=== PATIENT | female | born 2000 | race Native Hawaiian/Other Pacific Islander ===

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

== ENCOUNTER 2019-05-24 22:50 | Emergency (ER) | payer SELFPAY ==
[2019-05-24 23:18] VITALS: BP 130/70
--- NOTE | 2019-05-25 00:54 | XRay Report ---
CHEST 1 VIEW 12:23 AM INDICATION / CLINICAL INFORMATION: Cough and fever for 2 days. COMPARISON: 03/21/2011. FINDINGS: SUPPORT DEVICES: None. HEART / MEDIASTINUM: The heart size and pulmonary vasculature are normal. LUNGS / PLEURA: No significant pulmonary or pleural abnormality. No pneumothorax. ADDITIONAL FINDINGS: No significant additional findings. IMPRESSION: No acute findings. There is no evidence of pneumonia. Signer Name: Alfonso Barkely MD Signed: 05/25/2019 12:49 AM Workstation Name: [id number]
[2019-05-25] MEDS ORDERED: CLINDAMYCIN 300 MG CAP PO ONE (01:16)
[2019-05-25] MEDS ORDERED: IBUPROFEN 800 MG TAB PO ONE (01:16)
--- NOTE | 2019-05-25 01:17 | Emergency Department Report ---
ED General Adult HPI - General Chief complaint: Dental/Oral Stated complaint: TOOTHACHE/EMESIS Time Seen by Provider: 05/25/19 01:03 Source: patient Mode of arrival: Ambulatory Limitations: No Limitations - History of Present Illness Initial comments: Patient is a 18-year-old female is here secondary to tooth pain the past 2 days. Patient states noticed some swelling to the angle of the left jaw as well. Patient is a difficult time opening her mouth secondary to pain. Patient states for the past 2 days also exhibited fevers as well as a nonproductive cough. Patient denies nausea vomiting diarrhea neck stiffness or headaches. Severity scale (0 -10): 6 Consistency: constant Associated Symptoms: cough, fever/chills. denies: confusion, chest pain, diaphoresis, nausea/vomiting - Related Data Previous Rx's Medication Instructions Recorded Last Taken Type Ibuprofen [Motrin 600 MG tab] 600 mg PO Q8H #30 tablet 02/10/18 Unknown Rx Albuterol INH(or & Nicu Only) 2 puff IH QID PRN #1 inhalation 04/14/18 Unknown Rx [ProAir HFA Inhaler] Amoxicillin [Amoxicillin TAB] 875 mg PO BID #14 tablet 04/14/18 Unknown Rx guaiFENesin [Robitussin] 5 ml PO TID PRN #100 ml 04/14/18 Unknown Rx Ciprofloxacin HCl [Ciprofloxacin 500 mg PO BID 7 Days #14 tablet 09/21/18 Unknown Rx TAB] Loperamide [Imodium] 2 tab PO QID 2 Days #16 capsule 09/21/18 Unknown Rx metroNIDAZOLE [Metronidazole] 500 mg PO BID 7 Days #14 tablet 09/21/18 Unknown Rx Albuterol INH(or & Nicu Only) 2 puff IH QID PRN #1 inhalation 05/25/19 Unknown Rx [ProAir HFA Inhaler] Clindamycin [Clindamycin CAP] 300 mg PO Q8H #21 cap 05/25/19 Unknown Rx predniSONE [Deltasone] 20 mg PO QDAY #5 tab 05/25/19 Unknown Rx traMADoL [Ultram] 50 mg PO Q6HR PRN #12 tablet 05/25/19 Unknown Rx Allergies Allergy/AdvReac Type Severity Reaction Status Date / Time No Known Allergies Allergy Verified 09/20/18 18:26 ED Review of Systems ROS: Stated complaint: TOOTHACHE/EMESIS Other details as noted in HPI Comment: All other systems reviewed and negative ED Past Medical Hx - Past Medical History Previous Medical History?: Yes Hx Asthma: Yes - Surgical History Past Surgical History?: Yes 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 - Social History Smoking Status: Never Smoker Substance Use Type: None - Medications Home Medications: Home Medications Medication Instructions Recorded Confirmed Last Taken Type Ibuprofen [Motrin 600 MG tab] 600 mg PO Q8H #30 tablet 02/10/18 Unknown Rx Albuterol INH(or & Nicu Only) 2 puff IH QID PRN #1 inhalation 04/14/18 Unknown Rx [ProAir HFA Inhaler] Amoxicillin [Amoxicillin TAB] 875 mg PO BID #14 tablet 04/14/18 Unknown Rx guaiFENesin [Robitussin] 5 ml PO TID PRN #100 ml 04/14/18 Unknown Rx Ciprofloxacin HCl [Ciprofloxacin 500 mg PO BID 7 Days #14 tablet 09/21/18 Unknown Rx TAB] Loperamide [Imodium] 2 tab PO QID 2 Days #16 capsule 09/21/18 Unknown Rx metroNIDAZOLE [Metronidazole] 500 mg PO BID 7 Days #14 tablet 09/21/18 Unknown Rx Albuterol INH(or & Nicu Only) 2 puff IH QID PRN #1 inhalation 05/25/19 Unknown Rx [ProAir HFA Inhaler] Clindamycin [Clindamycin CAP] 300 mg PO Q8H #21 cap 05/25/19 Unknown Rx predniSONE [Deltasone] 20 mg PO QDAY #5 tab 05/25/19 Unknown Rx traMADoL [Ultram] 50 mg PO Q6HR PRN #12 tablet 05/25/19 Unknown Rx ED Physical Exam - General Limitations: No Limitations General appearance: alert, in no apparent distress - Head Head exam: Present: atraumatic, normocephalic - Expanded Head Exam Expanded 1 - At the angle of the right jaw the patient does have some swelling with skin induration and minimal erythema consistent with a facial cellulitis. - Eye Eye exam: Present: normal appearance - ENT ENT exam: Present: mucous membranes moist - Expanded ENT Exam Expanded 1 - Dental Tenderness - Neck Neck exam: Present: normal inspection - Respiratory Respiratory exam: Present: normal lung sounds bilaterally. Absent: respiratory distress - Cardiovascular Cardiovascular Exam: Present: normal rhythm, tachycardia, normal heart sounds. Absent: systolic murmur, diastolic murmur, rubs, gallop - GI/Abdominal GI/Abdominal exam: Present: soft, normal bowel sounds. Absent: distended, tenderness, guarding - Extremities Exam Extremities exam: Present: normal inspection - Back Exam Back exam: Present: normal inspection - Neurological Exam Neurological exam: Present: alert, oriented X3 - Psychiatric Psychiatric exam: Present: normal affect, normal mood - Skin Skin exam: Present: warm, dry, intact, normal color. Absent: rash ED Course Vital Signs 05/24/19 05/25/19 23:15 00:02 Temperature 100.5 F H Pulse Rate 144 H 127 H Respiratory 18 Rate Blood Pressure 130/70 O2 Sat by Pulse 96 97 Oximetry ED Medical Decision Making - Medical Decision Making Patient is complaining of a nonproductive cough fever but also has a area swell ing of the face overlying tooth #29. Patient appears to have a facial cellulitis and likely dental abscess. Patient started on clindamycin. Patient will be discharged home follow-up with a dentist. Patient has a additional finding of upper respiratory infection. Chest x-ray was done to rule out pneumonia which was negative for infiltrate. Critical care attestation.: If time is entered above; I have spent that time in minutes in the direct care of this critically ill patient, excluding procedure time. ED Disposition Clinical Impression: Facial cellulitis, Dental abscess Upper respiratory infection Qualifiers: URI type: unspecified viral URI Qualified Code(s): J06.9 - Acute upper respiratory infection, unspecified Disposition: TO HOME OR SELFCARE Is pt being admited?: No Does the pt Need Aspirin: No Condition: Stable Instructions: Cellulitis (ED), Dental Abscess (ED), Upper Respiratory Infection (ED) Additional Instructions: Please see referral to dental clinics Time of Disposition: 01:18
[2019-05-25] MEDS ORDERED: traMADol 50 MG TAB PO ONE (01:46)
== END 2019-05-25 02:13 | disposition home or self-care (01) ==
LOC: ED 22:50
DX: L03.211 Cellulitis of face (principal); K04.7 Periapical abscess without sinus; J06.9 Acute upper respiratory infection, unspecified; J45.909 Unspecified asthma, uncomplicated; Z79.899 Other long term (current) drug therapy
CPT/HCPCS: 71045

== ENCOUNTER 2019-06-24 16:46 | Emergency (ER) | payer SELFPAY ==
--- NOTE | 2019-06-24 19:29 | Emergency Department Report ---
Blank Doc - Documentation Documentation: 18-year-old female that presents with right knee pain s/p fall. This initial assessment/diagnostic orders/clinical plan/treatment(s) is/are subject to change based on patient's health status, clinical progression and re- assessment by fellow clinical providers in the ED. Further treatment and workup at subsequent clinical providers discretion. Patient/guardians urged not to elope from the ED as their condition may be serious if not clinically assessed and managed. Initial orders include: 1- Patient sent to [facility] for further evaluation and treatment 2- xrays
[2019-06-24 19:33] VITALS: BP 119/67
--- NOTE | 2019-06-24 20:05 | XRay Report ---
RIGHT KNEE 3 VIEWS INDICATION / CLINICAL INFORMATION: knee pain COMPARISON: None available. FINDINGS: BONES / JOINT(S): No acute fracture or subluxation. No significant arthritis. SOFT TISSUES: No significant abnormality. ADDITIONAL FINDINGS: None. Signer Name: Khari Go MD Signed: 06/24/2019 8:01 PM Workstation Name: [id number]
[2019-06-24] MEDS ORDERED: ACETAMINOPHEN 500 MG TAB PO ONE (20:06)
[2019-06-24] MEDS ORDERED: IBUPROFEN 600 MG TAB PO ONE (20:06)
--- NOTE | 2019-06-24 20:32 | Emergency Department Report ---
ED Fall HPI - General Chief Complaint: Extremity Injury, Lower Stated Complaint: RIGHT KNEE PAIN Time Seen by Provider: 06/24/19 19:28 Source: patient Mode of arrival: Ambulatory - History of Present Illness Initial Comments: Patient is a 18-year-old female who presented to the ED with complaint of acute onset persistent severe right knee pain and mild swelling after she slipped and fell down on the concrete ground about 1 week ago. Patient states that the pain has worsened especially in the last 2 days with any weightbearing or active range of motion. Patient denies head or neck injuries, back pain, hip pain, dizziness, syncope, seizures, numbness and tingling or weakness of lower extremities bilaterally. Patient states that she has been taking [id number] nter medications with no relief. MD Complaint: fall, other (right knee pain) -: Sudden, week(s) (1) Fall From: standing, other (slipped and fell down on concrete ground) When Fall Occurred: # days [employer] (7) Fall Witnessed: yes, by bystander Place Fall Occurred: street Loss of Consciousness: none Prolonged Down Time?: no Symptoms Prior to Fall: none Location: other (right knee) Location - Extremities: Right: Knee (pain) Severity: severe Severity scale (0 -10): 7 Quality: sharp, aching Context: tripped/slipped Associated Symptoms: denies. denies: headache, neck pain, numbness, weakness, chest paint, shortness of breath, abdominal pain, hematuria, unable to walk, lightheaded, vertigo, confusion, other - Related Data Previous Rx's Medication Instructions Recorded Last Taken Type Albuterol INH(or & Nicu Only) 2 puff IH QID PRN #1 inhalation 04/14/18 Unknown Rx [ProAir HFA Inhaler] Amoxicillin [Amoxicillin TAB] 875 mg PO BID #14 tablet 04/14/18 Unknown Rx guaiFENesin [Robitussin] 5 ml PO TID PRN #100 ml 04/14/18 Unknown Rx Ciprofloxacin HCl [Ciprofloxacin 500 mg PO BID 7 Days #14 tablet 09/21/18 Unknown Rx TAB] Loperamide [Imodium] 2 tab PO QID 2 Days #16 capsule 09/21/18 Unknown Rx metroNIDAZOLE [Metronidazole] 500 mg PO BID 7 Days #14 tablet 09/21/18 Unknown Rx Albuterol INH(or & Nicu Only) 2 puff IH QID PRN #1 inhalation 05/25/19 Unknown Rx [ProAir HFA Inhaler] Clindamycin [Clindamycin CAP] 300 mg PO Q8H #21 cap 05/25/19 Unknown Rx predniSONE [Deltasone] 20 mg PO QDAY #5 tab 05/25/19 Unknown Rx traMADoL [Ultram] 50 mg PO Q6HR PRN #12 tablet 05/25/19 Unknown Rx Cyclobenzaprine [Flexeril] 10 mg PO Q8H PRN #15 tablet 06/24/19 Unknown Rx Ibuprofen [Motrin 600 MG tab] 600 mg PO Q8H #30 tablet 06/24/19 Unknown Rx Allergies Allergy/AdvReac Type Severity Reaction Status Date / Time No Known Allergies Allergy Verified 09/20/18 18:26 ED Review of Systems ROS: Stated complaint: RIGHT KNEE PAIN Other details as noted in HPI Constitutional: denies: chills, fever Eyes: denies: eye pain, eye discharge, vision change ENT: denies: ear pain, throat pain Respiratory: denies: cough, shortness of breath, wheezing Cardiovascular: denies: chest pain, palpitations Endocrine: no symptoms reported Gastrointestinal: denies: abdominal pain, nausea, diarrhea Genitourinary: denies: urgency, dysuria, discharge Musculoskeletal: joint swelling (Right knee swelling and pain), arthralgia (Right knee pain and swelling). 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 - Social History Smoking Status: Current Every Day Smoker Substance Use Type: None - Medications Home Medications: Home Medications Medication Instructions Recorded Confirmed Last Taken Type Albuterol INH(or & Nicu Only) 2 puff IH QID PRN #1 inhalation 04/14/18 Unknown Rx [ProAir HFA Inhaler] Amoxicillin [Amoxicillin TAB] 875 mg PO BID #14 tablet 04/14/18 Unknown Rx guaiFENesin [Robitussin] 5 ml PO TID PRN #100 ml 04/14/18 Unknown Rx Ciprofloxacin HCl [Ciprofloxacin 500 mg PO BID 7 Days #14 tablet 09/21/18 Unknown Rx TAB] Loperamide [Imodium] 2 tab PO QID 2 Days #16 capsule 09/21/18 Unknown Rx metroNIDAZOLE [Metronidazole] 500 mg PO BID 7 Days #14 tablet 09/21/18 Unknown Rx Albuterol INH(or & Nicu Only) 2 puff IH QID PRN #1 inhalation 05/25/19 Unknown Rx [ProAir HFA Inhaler] Clindamycin [Clindamycin CAP] 300 mg PO Q8H #21 cap 05/25/19 Unknown Rx predniSONE [Deltasone] 20 mg PO QDAY #5 tab 05/25/19 Unknown Rx traMADoL [Ultram] 50 mg PO Q6HR PRN #12 tablet 05/25/19 Unknown Rx Cyclobenzaprine [Flexeril] 10 mg PO Q8H PRN #15 tablet 06/24/19 Unknown Rx Ibuprofen [Motrin 600 MG tab] 600 mg PO Q8H #30 tablet 06/24/19 Unknown Rx ED Physical Exam - General Limitations: No Limitations General appearance: alert, in no apparent distress - Head Head exam: Present: atraumatic, normocephalic - Eye Eye exam: Present: normal appearance, PERRL, EOMI - ENT ENT exam: Present: normal exam, normal orophraynx, mucous membranes moist, TM's normal bilaterally, normal external ear exam - Neck Neck exam: Present: normal inspection, full ROM - Respiratory Respiratory exam: Present: normal lung sounds bilaterally. Absent: respiratory distress, wheezes, rales, rhonchi, chest wall tenderness, accessory muscle use, decreased breath sounds, prolonged expiratory - Cardiovascular Cardiovascular Exam: Present: normal rhythm, tachycardia, normal heart sounds. Absent: systolic murmur, diastolic murmur, rubs, gallop - GI/Abdominal GI/Abdominal exam: Present: soft, normal bowel sounds. Absent: tenderness, guarding, hyperactive bowel sounds, hypoactive bowel sounds - Extremities Exam Extremities exam: Present: normal inspection, tenderness (Palpable right knee tenderness with limited range of motion due to pain), normal capillary refill, joint swelling (Mild right knee swelling and tenderness). Absent: full ROM (Limited range of motion of right knee due to pain) - Back Exam Back exam: Present: normal inspection, full ROM. Absent: tenderness, CVA tenderness (R), CVA tenderness (L), muscle spasm, paraspinal tenderness - Neurological Exam Neurological exam: Present: alert, oriented X3, CN II-XII intact, normal gait, reflexes normal - Psychiatric Psychiatric exam: Present: normal affect, normal mood - Skin Skin exam: Present: warm, dry, intact, normal color. Absent: rash ED Course Vital Signs 06/24/19 06/24/19 17:03 21:09 Temperature 98.6 F Pulse Rate 124 H 92 H Respiratory 18 17 Rate Blood Pressure 119/67 O2 Sat by Pulse 98 100 Oximetry ED Medical Decision Making - Radiology Data Radiology results: report reviewed, image reviewed Findings [facility] [address] [place] [address] XRay Report Signed Patient: NAOMI JOSE MR#: [id number] : 2000 Acct:[id number] Age/Sex: 18 / F ADM Date: 06/24/19 Loc: ED Attending Dr: Ordering Physician: YANICK GARCIA NP Date of Service: 06/24/19 Procedure(s): XR knee 3V RT Accession Number(s): [id number] cc: YANICK GARCIA NP Fluoro Time In Minutes: RIGHT KNEE 3 VIEWS INDICATION / CLINICAL INFORMATION: knee pain COMPARISON: None available. FINDINGS: BONES / JOINT(S): No acute fracture or subluxation. No significant arthritis. SOFT TISSUES: No significant abnormality. ADDITIONAL FINDINGS: None. Signer Name: Khari Go MD Signed: 06/24/2019 8:01 PM Workstation Name: [id number] Transcribed By: SS Dictated By: Khari Go MD Electronically Authenticated By: Khari Go MD Signed Date/Time: 06/24/192000 - Medical Decision Making This is a 18-year-old female who presented to the ED with complaint of acute onset persistent severe right knee pain and swelling after she slipped and fell down on the concrete ground about 1 week ago. In the ED, patient is alert and oriented x3 and is not in any distress. Patient was treated for pain in the ED and right knee x-ray shows no acute fractures or subluxations. Right knee was splinted with Dariel wrap and the patient discharged home on pain medications and muscle relaxants. Patient was advised to follow-up with her primary care physician in 5 to 7 days for reevaluation, or return to the ED immediately if symptoms get worse. - Differential Diagnosis knee sprain; Muscle strain; contusion Critical care attestation.: If time is entered above; I have spent that time in minutes in the direct care of this critically ill patient, excluding procedure time. ED Disposition Clinical Impression: Sprain of right knee/leg Qualifiers: Encounter type: initial encounter Qualified Code(s): S83.91XA - Sprain of unspecified site of right knee, initial encounter Contusion of right knee and lower leg Qualifiers: Encounter type: initial encounter Qualified Code(s): S80.01XA - Contusion of right knee, initial encounter Disposition: TO HOME OR SELFCARE Is pt being admited?: No Does the pt Need Aspirin: No Condition: Stable Instructions: Knee Sprain (ED), Leg Sprain (ED) Additional Instructions: Take medications with food, drink plenty fluids and follow-up with your primary care physician in 5 to 7 days for reevaluation. Return to the ED immediately if symptoms get worse. Prescriptions: Cyclobenzaprine [Flexeril] 10 mg PO Q8H PRN #15 tablet PRN Reason: Muscle Spasm Ibuprofen [Motrin 600 MG tab] 600 mg PO Q8H #30 tablet Referrals: [facility] [Outside] - 7-10 days Forms: Work/School Release Form(ED) Time of Disposition: 20:30 Print Language: YORUBA
== END 2019-06-24 21:09 | disposition home or self-care (01) ==
LOC: ED 16:46
DX: S83.91XA Sprain of unspecified site of right knee, initial encounter (principal); J45.909 Unspecified asthma, uncomplicated; F17.200 Nicotine dependence, unspecified, uncomplicated; Z79.899 Other long term (current) drug therapy; X58.XXXA Exposure to other specified factors, initial encounter; Y93.89 Activity, other specified; Y92.89 Other specified places as the place of occurrence of the external cause; Y99.8 Other external cause status
CPT/HCPCS: 99283

== ENCOUNTER 2019-09-05 11:31 | Emergency (ER) | payer SELFPAY ==
[2019-09-05 12:24] LABS: Basophils # (Auto) 0.1 K/mm3 (0.0-0.1); Basophils % (Auto) 0.8 % (0.0-1.8); Eosinophils # (Auto) 0.1 K/mm3 (0.0-0.4); Eosinophils % (Auto) 1.3 % (0.0-4.3); Hematocrit 39.9 % (30.3-42.9); Lymphocytes # (Auto) 1.4 K/mm3 (1.2-5.4); Lymphocytes % (Auto) 21.7 % (13.4-35.0); Mean Corpuscular HGB Conc 33 % (30-34); Mean Corpuscular Volume 83 fl (79-97); Monocytes # (Auto) 0.5 K/mm3 (0.0-0.8); Monocytes % (Auto) 7.7 % (0.0-7.3); Platelet Count 265 K/mm3 (140-440); Red Cell Distribution Width 16.1 % (13.2-15.2)
[2019-09-05 12:57] LABS: Alanine Aminotransferase 16 units/L (7-56); BUN/Creatinine Ratio 15; Blood Urea Nitrogen 9 mg/dL (7-17); Calcium 9.4 mg/dL (8.4-10.2); Hemolysis Index 6
--- NOTE | 2019-09-05 13:02 | Emergency Department Report ---
ED Female HPI - General Chief complaint: Abdominal Pain Stated complaint: ABD PAIN/VOMIT Time Seen by Provider: 09/05/19 12:38 Source: patient Mode of arrival: Ambulatory Limitations: No Limitations - History of Present Illness Initial comments: This is a 18-year-old female who presents to the emergency room with pelvic pain for 1 week. Past medical history of asthma. Patient also reports vomiting as associated symptoms. Last menstrual period was August 02, 2019, 0. Patient reports hematuria yesterday which is resolved today. She also reports intermittent vomiting. She is currently taking ibuprofen and Tylenol with minimal improvement of symptoms. Patient also reports increased vaginal discharge and urinary frequency. Patient states she had STD testing last month which was negative and concerned of possible . She denies dysuria or back pain. MD Complaint: vaginal discharge, pelvic pain, possible STD Onset/Timin -: week(s) Location: suprapubic Radiation: non-radiating Quality: sharp Consistency: intermittent Improves with: none Worsens with: none Are you Now?: No Last Menstrual Period: 08/02/19 EDC: 05/08/20 Associated Symptoms: vaginal discharge, abdominal pain, nausea/vomiting. denies: vaginal bleeding, fever/chills, headaches, loss of appetite, dysuria, hematuria, rash, seizure, shortness of breath, syncope, weakness - Related Data Sexually active: Yes : 0 Previous Rx's Medication Instructions Recorded Last Taken Type Albuterol INH(or & Nicu Only) 2 puff IH QID PRN #1 inhalation 04/14/18 Unknown Rx [ProAir HFA Inhaler] Amoxicillin [Amoxicillin TAB] 875 mg PO BID #14 tablet 04/14/18 Unknown Rx guaiFENesin [Robitussin] 5 ml PO TID PRN #100 ml 04/14/18 Unknown Rx Ciprofloxacin HCl [Ciprofloxacin 500 mg PO BID 7 Days #14 tablet 09/21/18 Unknown Rx TAB] Loperamide [Imodium] 2 tab PO QID 2 Days #16 capsule 09/21/18 Unknown Rx metroNIDAZOLE [Metronidazole] 500 mg PO BID 7 Days #14 tablet 09/21/18 Unknown Rx Clindamycin [Clindamycin CAP] 300 mg PO Q8H #21 cap 05/25/19 Unknown Rx traMADoL [Ultram] 50 mg PO Q6HR PRN #12 tablet 05/25/19 Unknown Rx Cyclobenzaprine [Flexeril] 10 mg PO Q8H PRN #15 tablet 06/24/19 Unknown Rx Ibuprofen [Motrin 600 MG tab] 600 mg PO Q8H #30 tablet 06/24/19 Unknown Rx Albuterol INH(or & Nicu Only) 2 puff IH QID PRN #1 inhalation 08/02/19 Unknown Rx [ProAir HFA Inhaler] Montelukast [Singulair] 10 mg PO QPM #30 tablet 08/02/19 Unknown Rx predniSONE [Deltasone] 20 mg PO QDAY #5 tab 08/02/19 Unknown Rx metroNIDAZOLE [Flagyl TAB] 500 mg PO Q12HR #14 tab 09/05/19 Unknown Rx Allergies Allergy/AdvReac Type Severity Reaction Status Date / Time No Known Allergies Allergy Verified 09/20/18 18:26 ED Review of Systems ROS: Stated complaint: ABD PAIN/VOMIT Other details as noted in HPI Constitutional: denies: chills, fever Respiratory: denies: cough, shortness of breath, wheezing Cardiovascular: denies: chest pain, palpitations Gastrointestinal: abdominal pain. denies: nausea, diarrhea Genitourinary: discharge. 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 - Social History Smoking Status: Current Every Day Smoker Substance Use Type: Marijuana - Medications Home Medications: Home Medications Medication Instructions Recorded Confirmed Last Taken Type Albuterol INH(or & Nicu Only) 2 puff IH QID PRN #1 inhalation 04/14/18 Unknown Rx [ProAir HFA Inhaler] Amoxicillin [Amoxicillin TAB] 875 mg PO BID #14 tablet 04/14/18 Unknown Rx guaiFENesin [Robitussin] 5 ml PO TID PRN #100 ml 04/14/18 Unknown Rx Ciprofloxacin HCl [Ciprofloxacin 500 mg PO BID 7 Days #14 tablet 09/21/18 Unknown Rx TAB] Loperamide [Imodium] 2 tab PO QID 2 Days #16 capsule 05/10/19 Unknown Rx metroNIDAZOLE [Metronidazole] 500 mg PO BID 7 Days #14 tablet 09/21/18 Unknown Rx Clindamycin [Clindamycin CAP] 300 mg PO Q8H #21 cap 05/25/19 Unknown Rx traMADoL [Ultram] 50 mg PO Q6HR PRN #12 tablet 05/25/19 Unknown Rx Cyclobenzaprine [Flexeril] 10 mg PO Q8H PRN #15 tablet 06/24/19 Unknown Rx Ibuprofen [Motrin 600 MG tab] 600 mg PO Q8H #30 tablet 06/24/19 Unknown Rx Albuterol INH(or & Nicu Only) 2 puff IH QID PRN #1 inhalation 08/02/19 Unknown Rx [ProAir HFA Inhaler] Montelukast [Singulair] 10 mg PO QPM #30 tablet 08/02/19 Unknown Rx predniSONE [Deltasone] 20 mg PO QDAY #5 tab 08/02/19 Unknown Rx metroNIDAZOLE [Flagyl TAB] 500 mg PO Q12HR #14 tab 09/05/19 Unknown Rx ED Physical Exam - General Limitations: No Limitations General appearance: alert, in no apparent distress - Respiratory Respiratory exam: Present: normal lung sounds bilaterally. Absent: respiratory distress - Cardiovascular Cardiovascular Exam: Present: regular rate, normal rhythm. Absent: systolic murmur, diastolic murmur, rubs, gallop - GI/Abdominal GI/Abdominal exam: Present: soft, tenderness (Suprapubic pain), normal bowel sounds. Absent: distended, guarding, rebound, rigid, organomegaly - External exam: Present: normal external exam. Absent: erythema, swelling, lesions, lacerations, ecchymosis, bleeding Speculum exam: Present: vaginal discharge (Malodorous greenish-white). Absent: erythema, cervical discharge, vaginal bleeding, foreign body, tissue, laceration Bi-manual exam: Present: adnexal tenderness (Left). Absent: cervical motion tendernes, adnexal mass, uterine enlargement, uterine tenderness - Extremities Exam Extremities exam: Present: normal inspection - Back Exam Back exam: Absent: CVA tenderness (R), CVA tenderness (L) - Neurological Exam Neurological exam: Present: alert, oriented X3, normal gait - Psychiatric Psychiatric exam: Present: normal affect, normal mood - Skin Skin exam: Present: warm, dry, intact, normal color. Absent: rash ED Course Vital Signs 09/05/19 09/05/19 11:40 15:21 Temperature 98.3 F Pulse Rate 120 H 78 Respiratory 16 Rate Blood Pressure 137/80 O2 Sat by Pulse 99 Oximetry ED Medical Decision Making - Lab Data Result diagrams: 09/05/19 11:58 09/05/19 11:58 Lab Results 09/05/19 09/05/19 09/05/19 Range/Units 11:58 11:58 11:58 WBC 6.4 (4.5-11.0) K/mm3 RBC 4.80 (3.65-5.03) M/mm3 Hgb 13.0 (10.1-14.3) gm/dl Hct 39.9 (30.3-42.9) % MCV 83 (79-97) fl MCH 27 L (28-32) pg MCHC 33 (30-34) % RDW 16.1 H (13.2-15.2) % Plt Count 265 (140-440) K/mm3 Lymph % (Auto) 21.7 (13.4-35.0) % Brewster % (Auto) 7.7 H (0.0-7.3) % Eos % (Auto) 1.3 (0.0-4.3) % Baso % (Auto) 0.8 (0.0-1.8) % Lymph # 1.4 (1.2-5.4) K/mm3 Brewster # 0.5 (0.0-0.8) K/mm3 Eos # 0.1 (0.0-0.4) K/mm3 Baso # 0.1 (0.0-0.1) K/mm3 Seg Neutrophils % 68.5 (40.0-70.0) % Seg Neutrophils # 4.4 (1.8-7.7) K/mm3 Sodium 139 (137-145) mmol/L Potassium 4.5 (3.6-5.0) mmol/L Chloride 102.6 (98-107) mmol/L Carbon Dioxide 21 L (22-30) mmol/L Anion Gap 20 mmol/L BUN 9 (7-17) mg/dL Creatinine 0.6 L (0.7-1.2) mg/dL Estimated GFR > 60 ml/min BUN/Creatinine Ratio 15 % Glucose 93 (65-100) mg/dL Calcium 9.4 (8.4-10.2) mg/dL Total Bilirubin 0.60 (0.1-1.2) mg/dL AST 18 (5-40) units/L ALT 16 (7-56) units/L Alkaline Phosphatase 56 (35-129) units/L Total Protein 6.8 (6.3-8.2) g/dL Albumin 4.0 (3.9-5) g/dL Albumin/Globulin Ratio 1.4 % Lipase 19 (13-60) units/L HCG, Qual (Negative) 09/05/19 Range/Units 11:58 WBC (4.5-11.0) K/mm3 RBC (3.65-5.03) M/mm3 Hgb (10.1-14.3) gm/dl Hct (30.3-42.9) % MCV (79-97) fl MCH (28-32) pg MCHC (30-34) % RDW (13.2-15.2) % Plt Count (140-440) K/mm3 Lymph % (Auto) (13.4-35.0) % Brewster % (Auto) (0.0-7.3) % Eos % (Auto) (0.0-4.3) % Baso % (Auto) (0.0-1.8) % Lymph # (1.2-5.4) K/mm3 Brewster # (0.0-0.8) K/mm3 Eos # (0.0-0.4) K/mm3 Baso # (0.0-0.1) K/mm3 Seg Neutrophils % (40.0-70.0) % Seg Neutrophils # (1.8-7.7) K/mm3 Sodium (137-145) mmol/L Potassium (3.6-5.0) mmol/L Chloride (98-107) mmol/L Carbon Dioxide (22-30) mmol/L Anion Gap mmol/L BUN (7-17) mg/dL Creatinine (0.7-1.2) mg/dL Estimated GFR ml/min BUN/Creatinine Ratio % Glucose (65-100) mg/dL Calcium (8.4-10.2) mg/dL Total Bilirubin (0.1-1.2) mg/dL AST (5-40) units/L ALT (7-56) units/L Alkaline Phosphatase (35-129) units/L Total Protein (6.3-8.2) g/dL Albumin (3.9-5) g/dL Albumin/Globulin Ratio % Lipase (13-60) units/L HCG, Qual Negative (Negative) - Medical Decision Making This is a 18-year-old female who presents to the emergency room with pelvic pain, vaginal discharge, and vomiting for 1 week. Slightly tachycardic on arrival. Past medical history of asthma. Work-up: Urinalysis, serum hCG, CBC, CMP, pelvic exam, gonorrhea chlamydia, and wet prep. Left adnexal tenderness on pelvic exam. Wet prep positive for clue cells, yeast, and trichomonas. Negativ e test. Patient will be treated for acute cervicitis. Empirically treated with azithromycin 1 g p.o. and Rocephin 250 mg IM to cover gonorrhea chlamydia. Start metronidazole 500 mg p.o. twice daily x7 days. Patient discharged home stable with strict return instructions. Referral to [facility] for continued care. Critical care attestation.: If time is entered above; I have spent that time in minutes in the direct care of this critically ill patient, excluding procedure time. ED Disposition Clinical Impression: Cervicitis, Vaginal discharge, Pelvic pain, Vomiting alone, Exposure to STD Disposition: DC-01 TO HOME OR SELFCARE Is pt being admited?: No Condition: Stable Instructions: Cervicitis (ED), Abdominal Pain (ED) Additional Instructions: Complete antibiotics as prescribed. Please inform all partners of positive trichomonas infection and importance of them being tested and treated. I have provided a list of [facility] for you to follow-up with for continued care. Prescriptions: metroNIDAZOLE [Flagyl TAB] 500 mg PO Q12HR #14 tab Referrals: [facility] [Provider Group] - 3-5 Days [facility] [Provider Group] - 3-5 Days [facility] [Provider Group] - 3-5 Days Forms: STI Treatment and Prevention Time of Disposition: 14:56
[2019-09-05 13:05] VITALS: BP 137/80
[2019-09-05] MEDS ORDERED: AZITHROMYCIN 250 MG TAB PO ONE (15:29)
[2019-09-05] MEDS ORDERED: LIDOCAINE-MPF (1%) 10 MG/1 ML VIAL 5 ML INFILTRATI ONE (15:29)
[2019-09-05 15:54] LABS: Bacteria,Urine 1+ /HPF (Negative); Bilirubin,Urine NEG (Negative); Blood,Urine SM (Negative); Color,Urine Straw (Yellow); Hyaline Casts,Urine 2 /LPF; Mucus,Urine FEW /HPF; Protein,Urine <15 mg/dL mg/dL (Negative); Urobilinogen,Urine < 2.0 mg/dL (<2.0)
== END 2019-09-05 15:49 | disposition home or self-care (01) ==
LOC: ED 11:31
DX: N72 Inflammatory disease of cervix uteri (principal); R10.2 Pelvic and perineal pain; N89.8 Other specified noninflammatory disorders of vagina; R11.10 Vomiting, unspecified; Z20.2 Contact with and (suspected) exposure to infections with a predominantly sexual mode of transmission; J45.909 Unspecified asthma, uncomplicated; F17.200 Nicotine dependence, unspecified, uncomplicated; F12.10 Cannabis abuse, uncomplicated; Z79.2 Long term (current) use of antibiotics; Z79.899 Other long term (current) drug therapy
CPT/HCPCS: 36415; 80053; 81001; 83690; 84703; 85025; 87086; 87210; 87591; 96372; 99284; J0696

== ENCOUNTER 2020-02-13 17:19 | Emergency (ER) | payer SELFPAY ==
[2020-02-13 17:42] VITALS: BP 114/69
[2020-02-13 18:31] LABS: Bilirubin,Urine NEG (Negative); Blood,Urine SM (Negative); Color,Urine Yellow (Yellow); Mucus,Urine FEW /HPF; Protein,Urine <15 mg/dL mg/dL (Negative); Urobilinogen,Urine < 2.0 mg/dL (<2.0)
[2020-02-13 18:34] LABS: HCG Qualitative,Urine Negative (Negative)
[2020-02-13] MEDS ORDERED: ACETAMINOPHEN 500 MG TAB PO ONE (20:05)
[2020-02-13] MEDS ORDERED: ONDANSETRON 4 MG ODT TAB PO ONE (20:05)
[2020-02-13 20:38] LABS: Basophils # (Auto) 0.2 K/mm3 (0.0-0.1); Basophils % (Auto) 2.2 % (0.0-1.8); Eosinophils # (Auto) 0.1 K/mm3 (0.0-0.4); Eosinophils % (Auto) 0.9 % (0.0-4.3); Hematocrit 36.4 % (30.3-42.9); Hemoglobin 12.2 gm/dl (10.1-14.3); Lymphocytes # (Auto) 1.7 K/mm3 (1.2-5.4); Lymphocytes % (Auto) 22.6 % (13.4-35.0); Mean Corpuscular HGB Conc 33 % (30-34); Mean Corpuscular Volume 82 fl (79-97); Monocytes # (Auto) 0.7 K/mm3 (0.0-0.8); Monocytes % (Auto) 9.4 % (0.0-7.3); Platelet Count 221 K/mm3 (140-440); Red Blood Count 4.46 M/mm3 (3.65-5.03); Red Cell Distribution Width 16.3 % (13.2-15.2)
[2020-02-13 20:55] LABS: Alanine Aminotransferase 18 units/L (7-56); Albumin 4.2 g/dL (3.9-5); Blood Urea Nitrogen 12 mg/dL (7-17); Calcium 9.8 mg/dL (8.4-10.2); Hemolysis Index 5
[2020-02-13 20:58] LABS: BUN/Creatinine Ratio 20
--- NOTE | 2020-02-13 21:24 | Ultrasound Report ---
ULTRASOUND PELVIS INDICATION / CLINICAL INFORMATION: Pelvic pain. TECHNIQUE: Transabdominal. Duplex Color Doppler used: Yes. COMPARISON: None available FINDINGS: UTERUS: The uterus is within normal limits for size measuring 8.3 x 4 x 5.0 cm. The uterus is antever leilani and demonstrates homogenous echotexture without evidence of focal lesion. Endometrial thickness m easures 16 mm. RIGHT ADNEXA: The right ovary is not visualized. Secondary to overlying bowel gas. LEFT ADNEXA: The left ovary is not visualized. Secondary to overlying bowel gas. URINARY BLADDER: No significant abnormality. FREE FLUID: None. ADDITIONAL FINDINGS: None. IMPRESSION: 1. Minimally limited exam with nonvisualization of the bilateral ovaries secondary to overlying bowel gas. 2. Endometrial thickness of 16 mm in this premenopausal female is likely physiologic. Signer Name: Margarito Huntley MD Signed: 02/13/2020 9:20 PM Workstation Name: [id number]
--- NOTE | 2020-02-14 00:07 | Emergency Department Report ---
ED Female HPI - General Chief complaint: Abdominal Pain Stated complaint: ABDOMINAL/VAGINAL PAIN Source: patient Mode of arrival: Ambulatory Limitations: No Limitations - History of Present Illness Initial comments: Patient is a nulliparous 19-year-old -Monegasque female with a history of asthma and bipolar disorder who presents to the ED with complaint of acute onset of persistent vaginal discharge, dysuria, urinary frequency and urgency and vaginal itching for the last 1 week. Patient denies abdominal pain, nausea, vomiting, chest pain, shortness of breath, cough, dyspareunia, headache, fever, chills, sore throat or diarrhea. MD Complaint: vaginal discharge, dysuria, other (vaginal itching and irritation) -: Sudden, week(s) (1) Location: other (vaginal) Radiation: non-radiating Severity: moderate Severity scale (0 -10): 5 Quality: burning, aching, other (itching) Consistency: constant Improves with: none Worsens with: urination Are you Now?: No Last Menstrual Period: 01/09/20 EDC: 10/15/20 Associated Symptoms: denies other symptoms, vaginal discharge, dysuria, other (Vaginal discharge). denies: vaginal bleeding, abdominal pain, nausea/vomiting, fever/chills, headaches, loss of appetite, hematuria, rash, seizure, shortness of breath, syncope, weakness - Related Data Sexually active: Yes : 0 Para: 0 A: 0 Previous Rx's Medication Instructions Recorded Last Taken Type Cyclobenzaprine [Flexeril 10 MG 10 mg PO Q8H PRN #15 tablet 06/24/19 Unknown Rx TAB] Ibuprofen [Motrin 600 MG tab] 600 mg PO Q8H #30 tablet 06/24/19 Unknown Rx Albuterol Mdi (or & Nicu Only) 2 puff IH QID PRN #1 inhalation 08/02/19 Unknown Rx [ProAir HFA Inhaler] Albuterol Mdi (or & Nicu Only) 2 puff IH QID PRN #1 inhalation 09/15/19 Unknown Rx [ProAir HFA Inhaler] Divalproex [Arianna Garcia] 125 mg PO BID #60 tablet 09/15/19 Unknown Rx FLUoxetine [PROzac] 10 mg PO QDAY #30 tablet 09/15/19 Unknown Rx QUEtiapine [SEROquel] 25 mg PO BID 1 Days #60 tablet 09/15/19 Unknown Rx Fluconazole (Nf) [Diflucan TAB] 150 mg PO ONCE #2 tablet 02/14/20 Unknown Rx Nystatin Oint [Mycostatin Oint] 1 applicatio TP BID #1 tube 02/14/20 Unknown Rx metroNIDAZOLE [Flagyl] 500 mg PO Q12HR #14 tab 02/14/20 Unknown Rx Allergies Allergy/AdvReac Type Severity Reaction Status Date / Time No Known Allergies Allergy Verified 09/20/18 18:26 ED Review of Systems ROS: Stated complaint: ABDOMINAL/VAGINAL PAIN Other details as noted in HPI Constitutional: denies: chills, fever Eyes: denies: eye pain, eye discharge, vision change ENT: denies: ear pain, throat pain Respiratory: denies: cough, shortness of breath, wheezing Cardiovascular: denies: chest pain, palpitations Endocrine: no symptoms reported Gastrointestinal: denies: abdominal pain, nausea, diarrhea Genitourinary: dysuria, frequency, discharge, other (Vaginal itching and discharge). 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 - Social History Smoking Status: Never Smoker Substance Use Type: None - Medications Home Medications: Home Medications Medication Instructions Recorded Confirmed Last Taken Type Cyclobenzaprine [Flexeril 10 MG 10 mg PO Q8H PRN #15 tablet 06/24/19 09/14/19 Unknown Rx TAB] Ibuprofen [Motrin 600 MG tab] 600 mg PO Q8H #30 tablet 06/24/19 09/14/19 Unknown Rx Albuterol Mdi (or & Nicu Only) 2 puff IH QID PRN #1 inhalation 08/02/19 09/14/19 Unknown Rx [ProAir HFA Inhaler] Albuterol Mdi (or & Nicu Only) 2 puff IH QID PRN #1 inhalation 09/15/19 Unknown Rx [ProAir HFA Inhaler] Divalproex [Depakote Dr] 125 mg PO BID #60 tablet 09/15/19 Unknown Rx FLUoxetine [PROzac] 10 mg PO QDAY #30 tablet 09/15/19 Unknown Rx QUEtiapine [SEROquel] 25 mg PO BID 1 Days #60 tablet 09/15/19 Unknown Rx Fluconazole (Nf) [Diflucan TAB] 150 mg PO ONCE #2 tablet 02/14/20 Unknown Rx Nystatin Oint [Mycostatin Oint] 1 applicatio TP BID #1 tube 02/14/20 Unknown Rx metroNIDAZOLE [Flagyl] 500 mg PO Q12HR #14 tab 02/14/20 Unknown Rx ED Physical Exam - General Limitations: No Limitations General appearance: alert, in no apparent distress - Head Head exam: Present: atraumatic, normocephalic, normal inspection - Eye Eye exam: Present: normal appearance, PERRL, EOMI Pupils: Present: normal accommodation - ENT ENT exam: Present: normal exam, normal orophraynx, mucous membranes moist, TM's normal bilaterally, normal external ear exam - Neck Neck exam: Present: normal inspection, full ROM - Respiratory Respiratory exam: Present: normal lung sounds bilaterally. Absent: respiratory distress, wheezes, rales, stridor, chest wall tenderness, accessory muscle use, decreased breath sounds, prolonged expiratory - Cardiovascular Cardiovascular Exam: Present: regular rate, normal rhythm, normal heart sounds. Absent: systolic murmur, diastolic murmur, rubs, gallop - GI/Abdominal GI/Abdominal exam: Present: soft, normal bowel sounds. Absent: tenderness, guarding, rebound, hyperactive bowel sounds, hypoactive bowel sounds, organomegaly - External exam: Present: erythema, other (Erythematous ulcerations with white cottage cheese discharge on the external vaginal stokes) Speculum exam: Present: normal speculum exam, vaginal discharge Bi-manual exam: Present: normal bi-manual exam, other (Female RN slide machine tender Piyush Anahi present) - Extremities Exam Extremities exam: Present: normal inspection, full ROM, normal capillary refill - Back Exam Back exam: Present: normal inspection, full ROM. Absent: tenderness, CVA tenderness (R), CVA tenderness (L), muscle spasm, paraspinal tenderness - Neurological Exam Neurological exam: Present: alert, oriented X3, CN II-XII intact, normal gait, reflexes normal - Psychiatric Psychiatric exam: Present: normal affect, normal mood - Skin Skin exam: Present: warm, dry, intact, normal color. Absent: rash ED Course Vital Signs 02/13/20 17:38 Temperature 98.7 F Pulse Rate 95 H Respiratory 20 Rate Blood Pressure 114/69 O2 Sat by Pulse 100 Oximetry ED Medical Decision Making - Lab Data Result diagrams: 02/13/20 20:11 02/13/20 20:11 - Radiology Data Radiology results: report reviewed, image reviewed Findings [facility] [address] [place] [address] Ultrasound Report Signed Patient: NAOMI JOSE MR#: [id number] : 2000 Acct:[id number] Age/Sex: 19 / F ADM Date: 02/13/20 Loc: ED Attending Dr: Ordering Physician: VALENTIN DAVALOS Date of Service: 02/13/20 Procedure(s): US pelvic limited Accession Number(s): [id number] cc: VALENTIN DAVALOS ULTRASOUND PELVIS INDICATION / CLINICAL INFORMATION: Pelvic pain. TECHNIQUE: Transabdominal. Duplex Color Doppler used: Yes. COMPARISON: None available FINDINGS: UTERUS: The uterus is within normal limits for size measuring 8.3 x 4 x 5.0 cm. The uterus is anteverted and demonstrates homogenous echotexture without evidence of focal lesion. Endometrial thickness measures 16 mm. RIGHT ADNEXA: The right ovary is not visualized. Secondary to overlying bowel gas. LEFT ADNEXA: The left ovary is not visualized. Secondary to overlying bowel gas. URINARY BLADDER: No significant abnormality. FREE FLUID: None. ADDITIONAL FINDINGS: None. IMPRESSION: 1. Minimally limited exam with nonvisualization of the bilateral ovaries secondary to overlying bowel gas. 2. Endometrial thickness of 16 mm in this premenopausal female is likely physiologic. Signer Name: Margarito Fisher MD Signed: 02/13/2020 9:20 PM Workstation Name: [id number] Transcribed By: Dictated By: MARGARITO FISHER Electronically Authenticated By: MARGARITO FISHER Signed Date/Time: 02/13/202119 DD/ 15 TD/TT: - Medical Decision Making This is a nulliparous 19-year-old -Monegasque female with a history of asthma and bipolar disorder who presents to the ED with complaint of acute onset of persistent vaginal discharge, dysuria, urinary frequency and urgency and vaginal itching for the last 1 week. In the ED, patient is alert and oriented x3 and is not in distress. Lab test results were reviewed and are all nonactionable except for wet prep test that was positive for Gardnerella vaginalis and Emmie vaginitis. The pelvic ultrasound showed no acute abnormalities. Patient was discharged home on antifungal and antibiotic presc ription medication. Patient was advised to follow-up with her [facility] physician in 7 to 10 days for reevaluation or return to the ED immediately if symptoms get worse. - Differential Diagnosis UTI; bacterial vaginosis; Emmie vaginitis; STD; Critical care attestation.: If time is entered above; I have spent that time in minutes in the direct care of this critically ill patient, excluding procedure time. ED Disposition Clinical Impression: Vaginal discharge, Bacterial vaginosis, Candidal vaginitis Disposition: TO HOME OR SELFCARE Is pt being admited?: No Does the pt Need Aspirin: No Condition: Stable Instructions: Abdominal Pain (ED), Bacterial Vaginosis (ED), Vaginitis (ED) Additional Instructions: All lab test results were reviewed and are all nonactionable except for wet prep test that was positive for Emmie vaginitis and Gardnerella vaginalis. Therefore take medication with food, drink plenty of fluids and follow-up with your primary care physician in 7 to 10 days for reevaluation. Return to the ED immediately if symptoms get worse. Prescriptions: Fluconazole (Nf) [Diflucan TAB] 150 mg PO ONCE #2 tablet metroNIDAZOLE [Flagyl] 500 mg PO Q12HR #14 tab Nystatin Oint [Mycostatin Oint] 1 applicatio TP BID #1 tube Referrals: [facility] [Provider Group] - 3-5 Days Forms: STI Treatment and Prevention Time of Disposition: 00:05 Print Language: LAO
== END 2020-02-14 00:15 | disposition home or self-care (01) ==
LOC: ED 17:19
DX: N76.0 Acute vaginitis (principal); B96.89 Other specified bacterial agents as the cause of diseases classified elsewhere; B37.3 Candidiasis of vulva and vagina; J45.909 Unspecified asthma, uncomplicated; Z79.1 Long term (current) use of non-steroidal anti-inflammatories (NSAID)
CPT/HCPCS: 36415; 76857; 80053; 81001; 81025; 83690; 85025; 87210; Q0162

== ENCOUNTER 2020-07-26 11:42 | Emergency (ER) | payer SELFPAY ==
[2020-07-26 12:14] VITALS: BP 128/84
--- NOTE | 2020-07-26 12:40 | XRay Report ---
XR chest routine 2V INDICATION / CLINICAL INFORMATION: cough. COMPARISON: 05/25/2019 FINDINGS: SUPPORT DEVICES: None. HEART /PULMONARY VASCULATURE: No significant abnormality. LUNGS / PLEURA: No significant pulmonary or pleural abnormality. No pneumothorax. ADDITIONAL FINDINGS: No significant additional findings. IMPRESSION: 1. No acute findings. Signer Name: Nikita Coelho MD Signed: 07/26/2020 12:35 PM Workstation Name: [id number]
[2020-07-26] MEDS ORDERED: IPRATROPIUM 0.02% NEBU 2.5 ML IH ONE (13:09)
[2020-07-26] MEDS ORDERED: ALBUTEROL 2.5 MG/3 ML NEBU IH ONE (13:09)
[2020-07-26] MEDS ORDERED: dexAMETHasone 20 MG/5 ML VIAL IV ONE (13:10)
--- NOTE | 2020-07-26 13:21 | Emergency Department Report ---
ED General Adult HPI - General Chief complaint: Upper Respiratory Infection Stated complaint: CHEST PAIN, WHEEZING, COUGHING Time Seen by Provider: 07/26/20 12:02 Source: patient Mode of arrival: Ambulatory Limitations: No Limitations - History of Present Illness Initial comments: 19-year-old -Sw[place] female patient presents with complaints of wheezing and cough x2 days. She also states she has some chest pain that occurs with coughing only. She denies any hemoptysis, shortness of breath, fever/chills/sweats, abdominal pain, nausea/vomiting/diarrhea, or loss of taste/smell. She reports a history of asthma and also admits to being a smoker. No leg pain/swelling, recent long travel, hormone use, history of DVT/PE, or syncopal episodes per patient. - Related Data Previous Rx's Medication Instructions Recorded Last Taken Type Cyclobenzaprine [Flexeril 10 MG 10 mg PO Q8H PRN #15 tablet 06/24/19 Unknown Rx TAB] Ibuprofen [Motrin 600 MG tab] 600 mg PO Q8H #30 tablet 06/24/19 Unknown Rx Albuterol Mdi (or & Nicu Only) 2 puff IH QID PRN #1 inhalation 08/02/19 Unknown Rx [ProAir HFA Inhaler] Divalproex Dr [Dephaley Dr] 125 mg PO BID #60 tablet 09/15/19 Unknown Rx FLUoxetine [PROzac] 10 mg PO QDAY #30 tablet 09/15/19 Unknown Rx QUEtiapine [SEROquel] 25 mg PO BID 1 Days #60 tablet 09/15/19 Unknown Rx Fluconazole (Nf) [Diflucan TAB] 150 mg PO ONCE #2 tablet 02/14/20 Unknown Rx Nystatin Oint [Mycostatin Oint] 1 applicatio TP BID #1 tube 02/14/20 Unknown Rx metroNIDAZOLE [Flagyl] 500 mg PO Q12HR #14 tab 02/14/20 Unknown Rx Albuterol Mdi (or & Nicu Only) 2 puff IH QID PRN #1 inhalation 07/26/20 Unknown Rx [ProAir HFA Inhaler] Prednisone [predniSONE 10 mg 10 mg PO .TAPER #1 tab.ds.pk 07/26/20 Unknown Rx (6-Day Pack, 21 Tabs)] Allergies Allergy/AdvReac Type Severity Reaction Status Date / Time No Known Allergies Allergy Verified 09/20/18 18:26 ED Review of Systems ROS: Stated complaint: CHEST PAIN, WHEEZING, COUGHING Other details as noted in HPI Constitutional: denies: chills, malaise ENT: denies: throat pain Respiratory: cough, wheezing. denies: shortness of breath Cardiovascular: as per HPI. 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 - Social History Smoking Status: Current Every Day Smoker Substance Use Type: None - Medications Home Medications: Home Medications Medication Instructions Recorded Confirmed Last Taken Type Cyclobenzaprine [Flexeril 10 MG 10 mg PO Q8H PRN #15 tablet 06/24/19 09/14/19 Unknown Rx TAB] Ibuprofen [Motrin 600 MG tab] 600 mg PO Q8H #30 tablet 06/24/19 09/14/19 Unknown Rx Albuterol Mdi (or & Nicu Only) 2 puff IH QID PRN #1 inhalation 08/02/19 09/14/19 Unknown Rx [ProAir HFA Inhaler] Divalproex Dr [Arianna Dr] 125 mg PO BID #60 tablet 09/15/19 Unknown Rx FLUoxetine [PROzac] 10 mg PO QDAY #30 tablet 09/15/19 Unknown Rx QUEtiapine [SEROquel] 25 mg PO BID 1 Days #60 tablet 09/15/19 Unknown Rx Fluconazole (Nf) [Diflucan TAB] 150 mg PO ONCE #2 tablet 02/14/20 Unknown Rx Nystatin Oint [Mycostatin Oint] 1 applicatio TP BID #1 tube 02/14/20 Unknown Rx metroNIDAZOLE [Flagyl] 500 mg PO Q12HR #14 tab 02/14/20 Unknown Rx Albuterol Mdi (or & Nicu Only) 2 puff IH QID PRN #1 inhalation 07/26/20 Unknown Rx [ProAir HFA Inhaler] Prednisone [predniSONE 10 mg 10 mg PO .TAPER #1 tab.ds.pk 07/26/20 Unknown Rx (6-Day Pack, 21 Tabs)] ED Physical Exam - General Limitations: No Limitations General appearance: alert, in no apparent distress - Head Head exam: Present: atraumatic, normocephalic - Eye Eye exam: Absent: scleral icterus - Respiratory Respiratory exam: Present: wheezes (Diffuse, worse on left), rhonchi (Mild on left). Absent: respiratory distress, rales, stridor - Cardiovascular Cardiovascular Exam: Present: regular rate - GI/Abdominal GI/Abdominal exam: Present: soft. Absent: tenderness - Extremities Exam Extremities exam: Present: full ROM. Absent: calf tenderness - Neurological Exam Neurological exam: Present: alert, oriented X3, normal gait - Skin Skin exam: Present: warm, dry, intact, normal color. Absent: rash ED Course Vital Signs 07/26/20 07/26/20 07/26/20 12:02 12:11 13:09 Temperature 99.0 F 99 F Pulse Rate 134 H 125 H 98 H Respiratory 20 20 Rate Blood Pressure 128/84 128/84 O2 Sat by Pulse 100 100 98 Oximetry ED Medical Decision Making - Radiology Data Radiology results: report reviewed - Medical Decision Making 19-year-old -Swazi female patient presents with complaints of wheezing and cough x2 days. She also states she has some chest pain that occurs with coughing only. She denies any hemoptysis, shortness of breath, fever/chills/sweats, abdominal pain, nausea/vomiting/diarrhea, or loss of taste/smell. She reports a history of asthma and also admits to being a smoker. No leg pain/swelling, recent long travel, hormone use, history of DVT/PE, or syncopal episodes per patient. No history of prior intubations per patient. Chest x-ray is normal. Patient given hour-long DuoNeb treatment and states she is feeling better. Vitals are normal. Patient is well-appearing and stable for discharge home. Prescription for prednisone and albuterol given for home. Recommend follow-up with primary care doctor in 3 days. Discussed signs and symptoms that should prompt imm ediate return to the emergency department in detail with patient who verbalizes understanding peer Critical care attestation.: If time is entered above; I have spent that time in minutes in the direct care of this critically ill patient, excluding procedure time. ED Disposition Clinical Impression: Asthma exacerbation Qualifiers: Asthma severity: mild Asthma persistence: intermittent Qualified Code(s): J45.21 - Mild intermittent asthma with (acute) exacerbation Disposition: DC- TO HOME OR SELFCARE Is pt being admited?: No Condition: Stable Instructions: Asthma, Adult Prescriptions: Prednisone [predniSONE 10 mg (6-Day Pack, 21 Tabs)] 10 mg PO .TAPER #1 tab.ds.pk Albuterol Mdi (or & Nicu Only) [ProAir HFA Inhaler] 2 puff IH QID PRN #1 inhalation PRN Reason: Shortness Of Breath Referrals: [facility] [Provider Group] - 2-3 Days Forms: Work/School Release Form(ED)
--- NOTE | 2020-07-26 19:09 | Emergency Department Report ---
ED General Adult HPI - General Chief complaint: Upper Respiratory Infection Stated complaint: CHEST PAIN, WHEEZING, COUGHING Time Seen by Provider: 07/26/20 12:02 Source: patient Mode of arrival: Ambulatory Limitations: No Limitations - Related Data Previous Rx's Medication Instructions Recorded Last Taken Type Cyclobenzaprine [Flexeril 10 MG 10 mg PO Q8H PRN #15 tablet 06/24/19 Unknown Rx TAB] Ibuprofen [Motrin 600 MG tab] 600 mg PO Q8H #30 tablet 06/24/19 Unknown Rx Albuterol Mdi (or & Nicu Only) 2 puff IH QID PRN #1 inhalation 08/02/19 Unknown Rx [ProAir HFA Inhaler] Divalproex Dr [Depakote Dr] 125 mg PO BID #60 tablet 09/15/19 Unknown Rx FLUoxetine [PROzac] 10 mg PO QDAY #30 tablet 09/15/19 Unknown Rx QUEtiapine [SEROquel] 25 mg PO BID 1 Days #60 tablet 09/15/19 Unknown Rx Fluconazole (Nf) [Diflucan TAB] 150 mg PO ONCE #2 tablet 02/14/20 Unknown Rx Nystatin Oint [Mycostatin Oint] 1 applicatio TP BID #1 tube 02/14/20 Unknown Rx metroNIDAZOLE [Flagyl] 500 mg PO Q12HR #14 tab 02/14/20 Unknown Rx Albuterol Mdi (or & Nicu Only) 2 puff IH QID PRN #1 inhalation 07/26/20 Unknown Rx [ProAir HFA Inhaler] Prednisone [predniSONE 10 mg 10 mg PO .TAPER #1 tab.ds.pk 07/26/20 Unknown Rx (6-Day Pack, 21 Tabs)] Allergies Allergy/AdvReac Type Severity Reaction Status Date / Time No Known Allergies Allergy Verified 09/20/18 18:26 ED Review of Systems ROS: Stated complaint: CHEST PAIN, WHEEZING, COUGHING Other details as noted in HPI ED Past Medical Hx - Past Medical History Previous Medical History?: Yes Hx Asthma: Yes - Surgical History Past Surgical History?: Yes 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 - Social History Smoking Status: Current Every Day Smoker Substance Use Type: None - Medications Home Medications: Home Medications Medication Instructions Recorded Confirmed Last Taken Type Cyclobenzaprine [Flexeril 10 MG 10 mg PO Q8H PRN #15 tablet 06/24/19 09/14/19 Unknown Rx TAB] Ibuprofen [Motrin 600 MG tab] 600 mg PO Q8H #30 tablet 06/24/19 09/14/19 Unknown Rx Albuterol Mdi (or & Nicu Only) 2 puff IH QID PRN #1 inhalation 08/02/19 09/14/19 Unknown Rx [ProAir HFA Inhaler] Divalproex Dr [Depakote Dr] 125 mg PO BID #60 tablet 09/15/19 Unknown Rx FLUoxetine [PROzac] 10 mg PO QDAY #30 tablet 09/15/19 Unknown Rx QUEtiapine [SEROquel] 25 mg PO BID 1 Days #60 tablet 09/15/19 Unknown Rx Fluconazole (Nf) [Diflucan TAB] 150 mg PO ONCE #2 tablet 02/14/20 Unknown Rx Nystatin Oint [Mycostatin Oint] 1 applicatio TP BID #1 tube 02/14/20 Unknown Rx metroNIDAZOLE [Flagyl] 500 mg PO Q12HR #14 tab 02/14/20 Unknown Rx Albuterol Mdi (or & Nicu Only) 2 puff IH QID PRN #1 inhalation 07/26/20 Unknown Rx [ProAir HFA Inhaler] Prednisone [predniSONE 10 mg 10 mg PO .TAPER #1 tab.ds.pk 07/26/20 Unknown Rx (6-Day Pack, 21 Tabs)] ED Physical Exam - General Limitations: No Limitations ED Course Vital Signs 07/26/20 12:11 Temperature 99 F Pulse Rate 125 H Respiratory 20 Rate Blood Pressure 128/84 O2 Sat by Pulse 100 Oximetry Critical care attestation.: If time is entered above; I have spent that time in minutes in the direct care of this critically ill patient, excluding procedure time. ED Disposition Condition: Stable
== END 2020-07-26 14:20 | disposition home or self-care (01) ==
LOC: ED 11:42
DX: J45.901 Unspecified asthma with (acute) exacerbation (principal); F17.200 Nicotine dependence, unspecified, uncomplicated; Z98.890 Other specified postprocedural states; Z79.899 Other long term (current) drug therapy
CPT/HCPCS: 71046; 94640; 96374; 99283; J1100

== ENCOUNTER 2020-09-29 13:47 | Emergency (ER) | payer MEDICAID ==
[2020-09-29 17:03] VITALS: BP 107/71
--- NOTE | 2020-09-29 17:38 | XRay Report ---
RIGHT HAND 3 VIEW(S) INDICATION / CLINICAL INFORMATION: injury COMPARISON: None available. FINDINGS: BONES / JOINT(S): No acute fracture or subluxation. No significant arthritis. SOFT TISSUES: No significant abnormality. ADDITIONAL FINDINGS: None. Signer Name: Margarito Huntley MD Signed: 09/29/2020 5:33 PM Workstation Name: [id number]
--- NOTE | 2020-09-29 20:40 | Emergency Department Report ---
ED Extremity Problem HPI - General Chief complaint: Extremity Injury, Upper Stated complaint: RIGHT HAND INJURY Time Seen by Provider: 09/29/20 19:35 Source: patient Mode of arrival: Ambulatory Limitations: No Limitations - History of Present Illness Initial comments: This is a 20-year-old female who presents to ED complaining of right fourth finger pain status post injury today. Patient states that she was playing basketball when the ball accidentally hit her finger snapping it backwards and bring it back. Patient states that since then she has been having pain and swelling to the joint of the fourth digit finger of the right hand. Patient denies any laceration, crush injury or any other trauma to the hand. MD Complaint: extremity pain, joint swelling, joint paint -: This afternoon - Related Data Previous Rx's Medication Instructions Recorded Last Taken Type Ibuprofen [Motrin 600 MG tab] 600 mg PO Q8H #30 tablet 06/24/19 Unknown Rx Albuterol Mdi (or & Nicu Only) 2 puff IH QID PRN #1 inhalation 08/02/19 Unknown Rx [ProAir HFA Inhaler] Divalproex Dr [Depakote Dr] 125 mg PO BID #60 tablet 09/15/19 Unknown Rx FLUoxetine [PROzac] 10 mg PO QDAY #30 tablet 09/15/19 Unknown Rx QUEtiapine [SEROquel] 25 mg PO BID 1 Days #60 tablet 09/15/19 Unknown Rx Fluconazole (Nf) [Diflucan TAB] 150 mg PO ONCE #2 tablet 02/14/20 Unknown Rx Nystatin Oint [Mycostatin Oint] 1 applicatio TP BID #1 tube 02/14/20 Unknown Rx metroNIDAZOLE [Flagyl] 500 mg PO Q12HR #14 tab 02/14/20 Unknown Rx Albuterol Mdi (or & Nicu Only) 2 puff IH QID PRN #1 inhalation 07/26/20 Unknown Rx [ProAir HFA Inhaler] Prednisone [predniSONE 10 mg 10 mg PO .TAPER #1 tab.ds.pk 07/26/20 Unknown Rx (6-Day Pack, 21 Tabs)] Cyclobenzaprine [Flexeril 10 MG 10 mg PO Q8H PRN #15 tablet 09/29/20 Unknown Rx TAB] Ibuprofen [Motrin] 800 mg PO Q8HR #30 tablet 09/29/20 Unknown Rx Allergies Allergy/AdvReac Type Severity Reaction Status Date / Time No Known Allergies Allergy Verified 09/20/18 18:26 ED Review of Systems ROS: Stated complaint: RIGHT HAND INJURY Other details as noted in HPI Comment: All other systems reviewed and negative ED Past Medical Hx - Past Medical History Previous Medical History?: Yes Hx Asthma: Yes - Surgical History Past Surgical History?: Yes 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 - Social History Smoking Status: Current Every Day Smoker Substance Use Type: None - Medications Home Medications: Home Medications Medication Instructions Recorded Confirmed Last Taken Type Ibuprofen [Motrin 600 MG tab] 600 mg PO Q8H #30 tablet 06/24/19 09/14/19 Unknown Rx Albuterol Mdi (or & Nicu Only) 2 puff IH QID PRN #1 inhalation 08/02/19 09/14/19 Unknown Rx [ProAir HFA Inhaler] Divalproex Dr [Depakote Dr] 125 mg PO BID #60 tablet 09/15/19 Unknown Rx FLUoxetine [PROzac] 10 mg PO QDAY #30 tablet 09/15/19 Unknown Rx QUEtiapine [SEROquel] 25 mg PO BID 1 Days #60 tablet 09/15/19 Unknown Rx Fluconazole (Nf) [Diflucan TAB] 150 mg PO ONCE #2 tablet 02/14/20 Unknown Rx Nystatin Oint [Mycostatin Oint] 1 applicatio TP BID #1 tube 02/14/20 Unknown Rx metroNIDAZOLE [Flagyl] 500 mg PO Q12HR #14 tab 02/14/20 Unknown Rx Albuterol Mdi (or & Nicu Only) 2 puff IH QID PRN #1 inhalation 07/26/20 Unknown Rx [ProAir HFA Inhaler] Prednisone [predniSONE 10 mg 10 mg PO .TAPER #1 tab.ds.pk 07/26/20 Unknown Rx (6-Day Pack, 21 Tabs)] Cyclobenzaprine [Flexeril 10 MG 10 mg PO Q8H PRN #15 tablet 09/29/20 Unknown Rx TAB] Ibuprofen [Motrin] 800 mg PO Q8HR #30 tablet 09/29/20 Unknown Rx ED Physical Exam - General Limitations: No Limitations - Head Head exam: Present: atraumatic - Eye Eye exam: Present: normal appearance - ENT ENT exam: Present: normal exam - Neck Neck exam: Present: normal inspection, full ROM - Respiratory Respiratory exam: Present: normal lung sounds bilaterally - Extremities Exam Extremities exam: Present: full ROM (Today), tenderness (To the palpation of the PIP joint of the fourth digit), normal capillary refill, joint swelling (Noted to the fourth finger of the right hand) - Back Exam Back exam: Present: full ROM - Neurological Exam Neurological exam: Present: alert, oriented X3, CN II-XII intact, normal gait - Skin Skin exam: Present: warm, dry ED Course Vital Signs 09/29/20 17:02 Temperature 98.3 F Pulse Rate 79 Respiratory 20 Rate Blood Pressure 107/71 O2 Sat by Pulse 100 Oximetry ED Medical Decision Making - Radiology Data Radiology results: report reviewed, image reviewed RIGHT HAND 3 VIEW(S) INDICATION / CLINICAL INFORMATION: injury COMPARISON: None available. FINDINGS: BONES / JOINT(S): No acute fracture or subluxation. No significant arthritis. SOFT TISSUES: No significant abnormality. ADDITIONAL FINDINGS: None. Signer Name: Stuart Fisher MD Signed: 09/29/2020 5:33 PM Workstation Name: [id number] Transcribed By: Dictated By: STUART FISHER Electronically Authenticated By: STUART FISHER Signed Date/Time: 09/29/20 1733 - Medical Decision Making This 20-year-old female presents with right finger sprain. X-ray shows no acute findings. Discussed findings with the patient. Discussed with patient to follow-up with primary care physician. Patient's fingers were seng taped and frog splint applied. Patient is in no acute respiratory distress, no neurological deficit and at this time safe for discharge. Critical care attestation.: If time is entered above; I have spent that time in minutes in the direct care of this critically ill patient, excluding procedure time. ED Disposition Clinical Impression: Finger sprain Disposition: DC-01 TO HOME OR SELFCARE Is pt being admited?: No Does the pt Need Aspirin: No Condition: Stable Instructions: Finger Sprain, Adult, [id number], How to Use Cold Therapy, [id number] Additional Instructions: Make sure to follow up with the primary care physician as discussed. Take all your medications as you've been prescribed. If you have any worsening symptoms or develop new symptoms please return to ED immediately. Prescriptions: Cyclobenzaprine [Flexeril 10 MG TAB] 10 mg PO Q8H PRN #15 tablet PRN Reason: Muscle Spasm Ibuprofen [Motrin] 800 mg PO Q8HR #30 tablet Referrals: PRIMARY CARE, [Primary Care Provider] - 3-5 Days [facility] [Outside] - 3-5 Days Forms: Work/School Release Form(ED) Time of Disposition: 20:43
[2020-09-29] MEDS ORDERED: IBUPROFEN 800 MG TAB PO ONE (20:45)
== END 2020-09-29 21:11 | disposition home or self-care (01) ==
LOC: ED 13:47
DX: S63.694A Other sprain of right ring finger, initial encounter (principal); J45.909 Unspecified asthma, uncomplicated; F17.200 Nicotine dependence, unspecified, uncomplicated; Z98.890 Other specified postprocedural states; Z79.899 Other long term (current) drug therapy; W21.05XA Struck by basketball, initial encounter; Y93.67 Activity, basketball; Y92.89 Other specified places as the place of occurrence of the external cause; Y99.8 Other external cause status
CPT/HCPCS: 99283

== ENCOUNTER 2020-10-26 15:40 | Emergency (ER) | payer MEDICAID ==
[2020-10-26 18:21] VITALS: BP 126/78
[2020-10-26] MEDS ORDERED: BENZONATATE 100 MG CAP PO ONE (20:16)
[2020-10-26] MEDS ORDERED: dexAMETHasone 20 MG/5 ML VIAL IM ONE (20:16)
[2020-10-26] MEDS ORDERED: ACETAMINOPEN W/CODEINE 120-12MG ORAL LIQD 5 ML PO ONE (20:16)
--- NOTE | 2020-10-26 20:16 | Emergency Department Report ---
Minor Respiratory - HPI Chief Complaint: Dyspnea/Respdistress Stated Complaint: COUGH Time Seen by Provider: 10/26/20 19:54 Duration: 2 weeks Pain Location: Throat, Nose, Chest Severity: moderate Minor Respiratory: Yes Rhinorrhea, Yes Sore Throat, Yes Able to Tolerate Fluids, Yes Cough, Yes Shortness of Breath, Yes Fever, No Ear Pain, No Sick Contacts, No Hemoptysis, No Chest Pain Other History: This is a 20-year-old female with a history of asthma who presents to the ED complaining of fever and coughing x2 weeks. Patient states she cannot recall any sick contact. Patient states that coughing is not getting better and she is coughing up green mucus. 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 - Social History Smoking Status: Current Every Day Smoker Substance Use Type: None - Medications Home Medications: Home Medications Medication Instructions Recorded Confirmed Last Taken Type Ibuprofen [Motrin 600 MG tab] 600 mg PO Q8H #30 tablet 06/24/19 09/14/19 Unknown Rx Albuterol Mdi (or & Nicu Only) 2 puff IH QID PRN #1 inhalation 08/02/19 09/14/19 Unknown Rx [ProAir HFA Inhaler] Divalproex Dr [Depakote Dr] 125 mg PO BID #60 tablet 09/15/19 Unknown Rx FLUoxetine [PROzac] 10 mg PO QDAY #30 tablet 09/15/19 Unknown Rx QUEtiapine [SEROquel] 25 mg PO BID 1 Days #60 tablet 09/15/19 Unknown Rx Fluconazole (Nf) [Diflucan TAB] 150 mg PO ONCE #2 tablet 02/14/20 Unknown Rx Nystatin Oint [Mycostatin Oint] 1 applicatio TP BID #1 tube 02/14/20 Unknown Rx metroNIDAZOLE [Flagyl] 500 mg PO Q12HR #14 tab 02/14/20 Unknown Rx Albuterol Mdi (or & Nicu Only) 2 puff IH QID PRN #1 inhalation 07/26/20 Unknown Rx [ProAir HFA Inhaler] Prednisone [predniSONE 10 mg 10 mg PO .TAPER #1 tab.ds.pk 07/26/20 Unknown Rx (6-Day Pack, 21 Tabs)] Cyclobenzaprine [Flexeril 10 MG 10 mg PO Q8H PRN #15 tablet 09/29/20 Unknown Rx TAB] Ibuprofen [Motrin] 800 mg PO Q8HR #30 tablet 09/29/20 Unknown Rx Albuterol Mdi (or & Nicu Only) 2 puff IH PRN PRN #1 pump 10/26/20 Unknown Rx [ProAir HFA Inhaler] Benzonatate [Tessalon Perles] 100 mg PO Q8HR #30 capsule 10/26/20 Unknown Rx Nystas/Diphen/Xyl Visc/Mylanta 15 ml MM Q6H PRN #120 ml 10/26/20 Unknown Rx [Magic Mouthwash] predniSONE [Deltasone] 20 mg PO QDAY #5 tab 10/26/20 Unknown Rx Minor Respiratory Exam - Exam General: Vital signs noted. No distress. Alert and acting appropriately. HEENT: Yes Moist Mucous Membranes, No Pharyngeal Erythema, No Pharyngeal Exudates, No Rhinorrhea, No Conjuctival Injection, No Frontal Tenderness, No Maxillary Tenderness Ear: Neither TM Bulge, Neither TM Erythema, Neither EAC Pain, Neither EAC Discharge Neck: Yes Supple, No Adenopathy Lungs: Yes Good Air Exchange, Yes Cough, No Wheezes, No Ronchi, No Stridor, No Labored Respirations, No Retractions, No Use of Accessory Muscles, No Other Abnormal Lung Sounds Heart: Yes Regular, No Murmur Abdomen: Yes Normal Bowel Sounds, No Tenderness, No Peritoneal Signs Skin: No Rash, No Edema Neurologic: Alert and oriented, no deficits. Musculoskeletal: Unremarkable. ED Course Vital Signs 10/26/20 18:17 Temperature 100.9 F H Pulse Rate 118 H Respiratory 24 Rate Blood Pressure 126/78 [Right] O2 Sat by Pulse 97 Oximetry ED Medical Decision Making - Radiology Data Radiology results: report reviewed, image reviewed Fluoro Time In Minutes: CHEST 2 VIEWS INDICATION / CLINICAL INFORMATION: cough/sob. COMPARISON: 07/26/2020 FINDINGS: SUPPORT DEVICES: None. HEART / MEDIASTINUM: No significant abnormality. LUNGS / PLEURA: No significant pulmonary or pleural abnormality. No pneumothorax. ADDITIONAL FINDINGS: No significant additional findings. IMPRESSION: 1. No acute findings. No significant interval change. Signer Name: Stuart Fisher MD Signed: 10/26/2020 9:11 PM Workstation Name: [id number] Transcribed By: Dictated By: STUART FISHER Electronically Authenticated By: STUART FISHER Signed Date/Time: 10/26/202110 - Medical Decision Making 20-year-old female presents with Viral syndrome bronchitis. Fever resolved no fever during the ED stay. Discussed with patient symptomatic relief with [id number] medications. Discussed continue Tylenol and Motrin as needed for fever and pain. Discussed increase fluids and diet intake. Discussed rest much needed. Discussed daily vitamin C for immune booster. Patient received nebulizer treatment today. Patient is in no respiratory distress throughout ED stay. Patient is walking and talking in amount of the ED room. Discussed follow-up with primary care physician in 3-5 days. Patient verbally states she understands and will comply the following instructions and follow-up Vital signs stable. Patient is in no acute distress Critical care attestation.: If time is entered above; I have spent that time in minutes in the direct care of this critically ill patient, excluding procedure time. ED Disposition Clinical Impression: Bronchitis, Viral syndrome Disposition: DC-01 TO HOME OR SELFCARE Is pt being admited?: No Does the pt Need Aspirin: No Condition: Stable Instructions: Viral Respiratory Infection, [id number]-[id number]-[id number], How to Use a Dry Powder Inhaler, Hijd-do-Jebu, Chronic Bronchitis (ED) Additional Instructions: Make sure to follow up with the primary care physician as discussed. Take all your medications as you've been prescribed. If you have any worsening symptoms or develop new symptoms please return to ED immediately. Prescriptions: predniSONE [Deltasone] 20 mg PO QDAY #5 tab Nystas/Diphen/Xyl Visc/Mylanta [Magic Mouthwash] 15 ml MM Q6H PRN #120 ml PRN Reason: Sore Throat Albuterol Mdi (or & Nicu Only) [ProAir HFA Inhaler] 2 puff IH PRN PRN #1 pump PRN Reason: Shortness Of Breath Benzonatate [Tessalon Perles] 100 mg PO Q8HR #30 capsule Referrals: PRIMARY CARE, [Primary Care Provider] - 3-5 Days [facility] [Outside] - 3-5 Days [facility] [Outside] - 3-5 Days Forms: Work/School Release Form(ED) Time of Disposition: 22:36
--- NOTE | 2020-10-26 21:16 | XRay Report ---
CHEST 2 VIEWS INDICATION / CLINICAL INFORMATION: cough/sob. COMPARISON: 07/26/2020 FINDINGS: SUPPORT DEVICES: None. HEART / MEDIASTINUM: No significant abnormality. LUNGS / PLEURA: No significant pulmonary or pleural abnormality. No pneumothorax. ADDITIONAL FINDINGS: No significant additional findings. IMPRESSION: 1. No acute findings. No significant interval change. Signer Name: Margarito Huntley MD Signed: 10/26/2020 9:11 PM Workstation Name: [id number]
== END 2020-10-26 23:28 | disposition home or self-care (01) ==
LOC: ED 15:40
DX: J45.909 Unspecified asthma, uncomplicated (principal); B34.9 Viral infection, unspecified; F17.200 Nicotine dependence, unspecified, uncomplicated; Z98.890 Other specified postprocedural states
CPT/HCPCS: 71046; 96372; 99283; J1100

== ENCOUNTER 2020-11-08 16:19 | Emergency (ER) | payer SELFPAY ==
--- NOTE | 2020-11-08 18:38 | Emergency Department Report ---
ED Extremity Problem HPI - General Chief complaint: Extremity Problem,Nontraumatic Stated complaint: RT LEG PAIN AND KNEE/SWELLING Time Seen by Provider: 11/08/20 18:37 Source: patient Mode of arrival: Ambulatory Limitations: No Limitations - Related Data Previous Rx's Medication Instructions Recorded Last Taken Type Ibuprofen [Motrin 600 MG tab] 600 mg PO Q8H #30 tablet 06/24/19 Unknown Rx Albuterol Mdi (or & Nicu Only) 2 puff IH QID PRN #1 inhalation 08/02/19 Unknown Rx [ProAir HFA Inhaler] Divalproex Dr [Depakote Dr] 125 mg PO BID #60 tablet 09/15/19 Unknown Rx FLUoxetine [PROzac] 10 mg PO QDAY #30 tablet 09/15/19 Unknown Rx QUEtiapine [SEROquel] 25 mg PO BID 1 Days #60 tablet 09/15/19 Unknown Rx Fluconazole (Nf) [Diflucan TAB] 150 mg PO ONCE #2 tablet 02/14/20 Unknown Rx Nystatin Oint [Mycostatin Oint] 1 applicatio TP BID #1 tube 02/14/20 Unknown Rx metroNIDAZOLE [Flagyl] 500 mg PO Q12HR #14 tab 02/14/20 Unknown Rx Albuterol Mdi (or & Nicu Only) 2 puff IH QID PRN #1 inhalation 07/26/20 Unknown Rx [ProAir HFA Inhaler] Prednisone [predniSONE 10 mg 10 mg PO .TAPER #1 tab.ds.pk 07/26/20 Unknown Rx (6-Day Pack, 21 Tabs)] Cyclobenzaprine [Flexeril 10 MG 10 mg PO Q8H PRN #15 tablet 09/29/20 Unknown Rx TAB] Ibuprofen [Motrin] 800 mg PO Q8HR #30 tablet 09/29/20 Unknown Rx Albuterol Mdi (or & Nicu Only) 2 puff IH PRN PRN #1 pump 10/26/20 Unknown Rx [ProAir HFA Inhaler] Benzonatate [Tessalon Perles] 100 mg PO Q8HR #30 capsule 10/26/20 Unknown Rx Nystas/Diphen/Xyl Visc/Mylanta 15 ml MM Q6H PRN #120 ml 10/26/20 Unknown Rx [Magic Mouthwash] predniSONE [Deltasone] 20 mg PO QDAY #5 tab 10/26/20 Unknown Rx Allergies Allergy/AdvReac Type Severity Reaction Status Date / Time No Known Allergies Allergy Verified 09/20/18 18:26 ED Review of Systems ROS: Stated complaint: RT LEG PAIN AND KNEE/SWELLING Other details as noted in HPI ED Past Medical Hx - Past Medical History Previous Medical History?: Yes Hx Asthma: Yes - Surgical History Past Surgical History?: Yes 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 - Social History Smoking Status: Current Every Day Smoker Substance Use Type: None - Medications Home Medications: Home Medications Medication Instructions Recorded Confirmed Last Taken Type Ibuprofen [Motrin 600 MG tab] 600 mg PO Q8H #30 tablet 06/24/19 09/14/19 Unknown Rx Albuterol Mdi (or & Nicu Only) 2 puff IH QID PRN #1 inhalation 08/02/19 09/14/19 Unknown Rx [ProAir HFA Inhaler] Divalproex Dr [Depakote Dr] 125 mg PO BID #60 tablet 09/15/19 Unknown Rx FLUoxetine [PROzac] 10 mg PO QDAY #30 tablet 09/15/19 Unknown Rx QUEtiapine [SEROquel] 25 mg PO BID 1 Days #60 tablet 09/15/19 Unknown Rx Fluconazole (Nf) [Diflucan TAB] 150 mg PO ONCE #2 tablet 02/14/20 Unknown Rx Nystatin Oint [Mycostatin Oint] 1 applicatio TP BID #1 tube 02/14/20 Unknown Rx metroNIDAZOLE [Flagyl] 500 mg PO Q12HR #14 tab 02/14/20 Unknown Rx Albuterol Mdi (or & Nicu Only) 2 puff IH QID PRN #1 inhalation 07/26/20 Unknown Rx [ProAir HFA Inhaler] Prednisone [predniSONE 10 mg 10 mg PO .TAPER #1 tab.ds.pk 07/26/20 Unknown Rx (6-Day Pack, 21 Tabs)] Cyclobenzaprine [Flexeril 10 MG 10 mg PO Q8H PRN #15 tablet 09/29/20 Unknown Rx TAB] Ibuprofen [Motrin] 800 mg PO Q8HR #30 tablet 09/29/20 Unknown Rx Albuterol Mdi (or & Nicu Only) 2 puff IH PRN PRN #1 pump 10/26/20 Unknown Rx [ProAir HFA Inhaler] Benzonatate [Tessalon Perles] 100 mg PO Q8HR #30 capsule 10/26/20 Unknown Rx Nystas/Diphen/Xyl Visc/Mylanta 15 ml MM Q6H PRN #120 ml 10/26/20 Unknown Rx [Magic Mouthwash] predniSONE [Deltasone] 20 mg PO QDAY #5 tab 10/26/20 Unknown Rx ED Physical Exam - General Limitations: No Limitations ED Course Vital Signs 11/08/20 16:59 Temperature 98.8 F Pulse Rate 88 Respiratory 14 Rate Blood Pressure 108/63 O2 Sat by Pulse 99 Oximetry Critical care attestation.: If time is entered above; I have spent that time in minutes in the direct care of this critically ill patient, excluding procedure time. ED Disposition Condition: Stable
--- NOTE | 2020-11-08 18:44 | Emergency Department Report ---
Chief Complaint: Extremity Problem,Nontraumatic Stated Complaint: RT LEG PAIN AND KNEE/SWELLING Time Seen by Provider: 11/08/20 18:37 - HPI History of Present Illness: 20-year-old -[place] female presents to the emergency room for chronic knee pain that is been noted in our ER since 2018. Patient comes in stating she has been having knee swelling for the last 2 months. Patient comes in asking for knee brace and crutches. Patient states she misplaced her knee brace that she bought from [employer]. Patient states every time she goes to the emergency room she gets a knee brace and crutches. Patient states that she has been taking pain medication such as ibuprofen and Aleve without much relief. Patient has not followed up with her orthopedic provider. 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 Patient states that this is what makes her knee hurt. - Exam Vital Signs: Vital Signs 11/08/20 16:59 Temperature 98.8 F Pulse Rate 88 Respiratory 14 Rate Blood Pressure 108/63 O2 Sat by Pulse 99 Oximetry Physical Exam: Alert and oriented x3 no acute distress Regular rate Effort of breath Ambulatory in the emergency room MSE screening note: Focused history and physical exam performed. Due to findings the following was ordered: 20-year-old -[place] female presents to the emergency room for chronic knee pain that is been noted in our ER since 2018. Patient comes in stating she has been having knee swelling for the last 2 months. Patient comes in asking for knee brace and crutches. Patient states she misplaced her knee brace that she bought from [email or web address]. Patient states every time she goes to the emergency room she gets a knee brace and crutches. Patient states that she has been taking pain medication such as ibuprofen and Aleve without much relief. Patient has not followed up with her orthopedic provider. 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 Patient states that this is what makes her knee hurt. Patient has been ambulating in and out the emergency room for the last 2 hours with her girlfriend. I discussed with patient that she can follow-up with an orthopedic provider as this is a chronic complaint. Patient can continue taking Tylenol or ibuprofen for pain management. ED Disposition for MSE Clinical Impression: Chronic pain of right knee Disposition: DC-01 TO HOME OR SELFCARE Is pt being admited?: No Does the pt Need Aspirin: No Condition: Stable Additional Instructions: Follow-up with an orthopedic provider. Take Tylenol ibuprofen for pain. Referrals: TK HOFFMAN MD [Staff Physician] - 3-5 Days
== END 2020-11-08 18:50 | disposition home or self-care (01) ==
LOC: ED 16:19
CPT/HCPCS: 99281